=== PATIENT | female | born 2005 | race Caucasian/White ===

== ENCOUNTER 2023-11-24 06:07 | Outpatient (REF) | payer BC, SELFPAY ==
--- NOTE | ~2023-11-24 | US_ITS ---
EXAMINATION: US PELVIS COMPLETE CLINICAL INFORMATION: pelvic pain r>l, hx of ovarian cysts. COMPARISON: None TECHNIQUE: Transabdominal images of the pelvis were obtained. Color and spectral Doppler evaluation of the ovaries was performed. FINDINGS: UTERUS: Anteverted. Normal size and contour, measuring 7.6 x 2.8 x 4.1 cm (cervix to fundus x AP x transverse). Uniform, homogeneous endometrium measures 0.3 cm in width. RIGHT OVARY: Normal size and echogenicity measuring 6.9 x 5.7 x 7.2 cm, volume 148 mL. There is an anechoic well-circumscribed avascular lesion within the right ovary measuring 5.9 x 5.3 x 6.5 cm favored to represent a simple ovarian cyst. LEFT OVARY: Normal size and echogenicity measuring 2.1 x 2 x 2.9 cm, volume 6.5 mL. Arterial and venous waveforms are identified in both ovaries on spectral Doppler assessment. FREE FLUID: No pelvic free fluid. US/US pelvic complete IMPRESSION: 1. No evidence for ovarian torsion. 2. There is a large simple cyst within the right ovary measuring up to 6.5 cm. Findings likely represent a probable benign cyst. Recommend followup ultrasonography in 3-6 months. Electronically signed by: Marie Garcia DO 11/25/2023 04:49 PM EDT
== END 2023-11-24 06:08 | disposition home or self-care (01) ==
LOC: HO.UMASIMG 06:07
PROVIDERS: Visit Provider Nurse Practitioner Women's Health
DX: R10.2 Pelvic and perineal pain (principal)
CPT/HCPCS: 76856